=== PATIENT | female | born 1970 | race Caucasian/White ===

== ENCOUNTER 2018-06-21 10:30 | Outpatient (CLI) | payer OTHER ==
--- NOTE | 2018-06-21 11:27 | RAD ---
ABDOMEN ONE VIEW: HISTORY: Kidney stones. Urinary frequency. COMPARISON: 10/24/2016 FINDINGS: Extensive postop changes noted involving the mid and lower abdomen. There is some motion artifact, w hich somewhat obscures the underlying renal stones. There are bilateral nonobstructing renal calculi . No overt ureteral calculus. IMPRESSION: 1. Bilateral renal calculi. 2. Postoperative changes. POS: [facility]
--- NOTE | 2018-06-21 11:41 | ULT ---
BILATERAL RENAL ULTRASOUND COMPLETE: Date: 06/21/18 HISTORY: Kidney stones. COMPARISON: 10/24/16. FINDINGS: The right kidney measures 11.6 x 5.9 x 5.7 cm. The left kidney measures 12.1 x 5.8 x 5.7 cm. No renal hydronephrosis. No perinephric process. Urinary bladder is unremarkable. There are some bila teral renal focal hyperdensities, evidence for nonobstructing renal calculi. IMPRESSION: Evidence for nonobstructing bilateral renal calculi. No renal hydronephrosis. POS: [facility]
== END 2018-06-21 10:31 | disposition home or self-care (01) ==
LOC: BICULT 10:30
PROVIDERS: ATTEND Urology
DX: N20.0 Calculus of kidney (principal); R35.0 Frequency of micturition; Z98.890 Other specified postprocedural states
CPT/HCPCS: 74018; 76770

== ENCOUNTER 2019-07-31 08:08 | Outpatient (CLI) | payer OTHER ==
--- NOTE | 2019-07-31 08:22 | RAD ---
Radiograph abdomen one view: DATE: 07/31/2019 HISTORY: 49-year-old female with calculus of kidney. Follow-up. COMPARISON: 06/21/2018 FINDINGS: Cholecystectomy clips in right upper quadrant. Numerous titanium tacks throughout the mid and lower a bdomen. Renal calculi are again visualized bilaterally, left more numerous than right. The largest on the left overlies the mid pole, up to 10 mm. No calculus identified in the bladder. Normal bowel g as pattern. No interval change. IMPRESSION: 1.) Bilateral nephrolithiasis (calculus of kidney) 2) no interval change
== END 2019-07-31 08:09 | disposition home or self-care (01) ==
LOC: BICRAD 08:08
PROVIDERS: ATTEND Urology
DX: N20.0 Calculus of kidney (principal); R35.0 Frequency of micturition
CPT/HCPCS: 36415; 74018; 80048; 81001; 84550

== ENCOUNTER 2019-08-25 11:04 | Outpatient (CLI) | payer OTHER ==
--- NOTE | 2019-08-25 12:48 | CT ---
CT ABDOMEN AND PELVIS WITHOUT CONTRAST: Date: 08/25/2019 HISTORY: Calculus of kidney. COMPARISON: 03/10/2016. FINDINGS: Absence of oral and IV contrast reduces the sensitivity of exam, particularly for evaluation of solid organs and bowel. The lung bases are clear. Right adrenal adenoma is again seen. The patient is post cholecystectomy. No free air or free fluid s een in the abdomen or pelvis. Postop changes of anterior abdominal wall repair are again noted. The f luid collection in the lower anterior abdominal wall noted on the previous exam has resolved in the i nterim. Bilateral renal calculi are present, measuring up to 4.0 mm on the right and 5.0 mm on the left. No c alculi seen in the ureters or the urinary bladder. No hydroureteronephrosis is seen on either side. The patient is post hysterectomy. There are degenerative changes in the spine. IMPRESSION: 1. Nonobstructing bilateral renal calculi. 2. Right adrenal adenoma. POS: [facility]
== END 2019-08-25 11:05 | disposition home or self-care (01) ==
LOC: BICCT 11:04
PROVIDERS: ATTEND Urology
DX: N20.0 Calculus of kidney (principal); D35.01 Benign neoplasm of right adrenal gland
CPT/HCPCS: 36415; 74176; 81001; 84550

== ENCOUNTER 2021-01-21 16:11 | Outpatient (CLI) | payer OTHER ==
[2021-01-21 18:14] LABS: Hemoglobin 12.8 g/dL (12.0-15.5); Mean Corpuscular HGB CONC 31.9 g/dL (32.0-36.0); Mean Corpuscular Hemoglobin 30.8 pg (27.0-33.0); Mean Corpuscular Volume 96.6 fl (81.6-98.3); Mean Platelet Volume 10.4 fl (7.4-10.4); Platelet Count 384 10x3/uL (150-450); RBC Distribution Width 14.3 % (11.5-14.5); Red Blood Cell (RBC) Count 4.15 10x6/uL (3.90-5.03); White Blood Cell (WBC) Count 9.6 10x3/uL (3.5-10.5)
[2021-01-21 18:27] LABS: Anion Gap 12 mmol/L (10-20); BUN (Urea Nitrogen) 13 mg/dL (7.0-18.7); Calc. Creatinine Clearance 0 mL/min (70-130); Calcium 9.3 mg/dL (7.8-10.44); Carbon Dioxide 24 mmol/L (22-29); Chloride 109 mmol/L (98-107); Glucose 125 mg/dL (70-105); INR-International Normal Ratio 0.9; PTT 29.8 sec (22.0-33.0); Potassium 4.1 mmol/L (3.5-5.1); Prothrombin Time 10.3 sec (9.5-12.1); Sodium 141 mmol/L (136-145)
[2021-01-22 18:14] LABS: SARS-CoV-2 PCR by NAA Not Detected (NotDetected)
== END 2021-01-21 16:12 | disposition home or self-care (01) ==
LOC: LABBT 16:11
PROVIDERS: ATTEND Urology
DX: Z01.818 Encounter for other preprocedural examination (principal); Z20.822 Contact with and (suspected) exposure to COVID-19
CPT/HCPCS: 80048; 85027; 85610; 85730; 93005; 93010; U0003; U0005

== ENCOUNTER 2021-01-26 05:36 | Day surgery (SDC) | payer OTHER ==
[2021-01-25 11:08] VITALS: BMI 49.1
[2021-01-26] MEDS ORDERED: Levofloxacin 500 mg/D5W 100 ml Premix Bag ONE (06:42)
[2021-01-26] MEDS ORDERED: Fentanyl 100 MCG/2 ML VIAL ONE ×3 (07:26→10:05)
[2021-01-26] MEDS ORDERED: SUGAMMADEX SODIUM 200 MG/2 ML VIAL ONE (07:26)
[2021-01-26] MEDS ORDERED: Iothalamate Meglumine 60% 50 ML VIAL FS ONE (07:54)
[2021-01-26] MEDS ORDERED: PROPOFOL 200 MG/20 ML VIAL ONE (08:08)
[2021-01-26] MEDS ORDERED: Glycopyrrolate 0.2 MG/ML 5 ML SYRINGE ONE (08:08)
[2021-01-26] MEDS ORDERED: Lidocaine 1% PF 5 ML VIAL ONE (08:08)
[2021-01-26] MEDS ORDERED: Ondansetron PF 4 MG/2 ML Vial ONE (08:08)
[2021-01-26] MEDS ORDERED: Dexamethasone 20 MG/5 ML VIAL ONE (08:08)
[2021-01-26] MEDS ORDERED: Rocuronium Bromide 10 MG/ML (10ML VIAL) ONE (08:08)
[2021-01-26] MEDS ORDERED: Albuterol Sulfate 1.25 MG/3 ML NEB ONE (09:42)
[2021-01-26] MEDS ORDERED: Oxybutynin 5 MG TAB ONE (09:59)
[2021-01-26] MEDS ORDERED: Phenazopyridine HCl 100 MG TAB ONE (09:59)
[2021-01-26] MEDS ORDERED: Promethazine HCl 25 MG/ML VIAL ONE (10:05)
== END 2021-01-26 12:10 | disposition home or self-care (01) ==
LOC: SDC 05:36
PROVIDERS: ATTEND Urology
PROC: 0TC78ZZ Extirpation of Matter from Left Ureter, Via Natural or Artificial Opening Endoscopic (ICD-10-PCS; principal; 2021-01-26)
PROC: 0TC48ZZ Extirpation of Matter from Left Kidney Pelvis, Via Natural or Artificial Opening Endoscopic (ICD-10-PCS; principal; 2021-01-26)
PROC: 0T778DZ Dilation of Left Ureter with Intraluminal Device, Via Natural or Artificial Opening Endoscopic (ICD-10-PCS; principal; 2021-01-26)
DX: N13.2 Hydronephrosis with renal and ureteral calculous obstruction (principal); J45.909 Unspecified asthma, uncomplicated; E03.9 Hypothyroidism, unspecified; G43.909 Migraine, unspecified, not intractable, without status migrainosus; E21.3 Hyperparathyroidism, unspecified; E79.0 Hyperuricemia without signs of inflammatory arthritis and tophaceous disease; E66.01 Morbid (severe) obesity due to excess calories; Z68.42 Body mass index [BMI] 45.0-49.9, adult; Z79.2 Long term (current) use of antibiotics; Z79.84 Long term (current) use of oral hypoglycemic drugs; Z79.899 Other long term (current) drug therapy; Z88.1 Allergy status to other antibiotic agents; Z88.5 Allergy status to narcotic agent; Z88.8 Allergy status to other drugs, medicaments and biological substances
CPT/HCPCS: 74018; 74420; 82365; 88300; C2617; J1100; J1956; J2405; J2550; J2704; J3010; Q9961-U8

== ENCOUNTER 2021-05-25 09:32 | Outpatient (CLI) | payer OTHER | END 2021-05-25 09:33 | disposition home or self-care (01) | LOC: BICRAD 09:32 | PROVIDERS: ATTEND Urology | DX: N20.0 Calculus of kidney (principal) | CPT/HCPCS: 74018 ==

== ENCOUNTER 2021-09-28 16:58 | Emergency (ER) | payer OTHER ==
[2021-09-28] MEDS ORDERED: Ketorolac Tromethamine 30 MG/ML VIAL ONE (17:54)
[2021-09-28 18:41] LABS: #Eosinphils 0.3 thou/uL (0.0-0.7); #Lymphocytes 1.7 thou/uL (1.20-3.40); #Monocytes 0.5 thou/uL (0.11-0.59); %Basophils 0.3 % (0.0-1.0); %Eosinophils 4.1 % (0.0-10.0); %Lymphocytes 22.4 % (21.0-51.0); %Monocytes 6.3 % (0.0-10.0); %Neutrophils 66.9 % (42.0-75.0); Hemoglobin 13.1 g/dL (12.0-16.0); Mean Corpuscular HGB CONC 32.5 g/dL (32.0-36.0); Mean Corpuscular Hemoglobin 31.2 pg (27.0-31.0); Mean Corpuscular Volume 96.2 fL (78.0-98.0); Mean Platelet Volume 7.9 fL (7.4-10.4); Platelet Count 314 thou/uL (130-400); RBC Distribution Width 12.9 % (11.5-14.5); White Blood Cell (WBC) Count 7.5 thou/uL (4.8-10.8)
[2021-09-28] MEDS ORDERED: Fentanyl 100 MCG/2 ML VIAL ONE (19:04)
[2021-09-28 19:13] LABS: ALT (SGPT) 22 U/L (8-55); AST (SGOT) 17 U/L (5-34); Albumin 3.8 g/dL (3.5-5.0); Alkaline Phosphatase 57 U/L (40-110); Anion Gap 14 mmol/L (10-20); BUN (Urea Nitrogen) 12 mg/dL (9.8-20.1); Bilirubin, Total 0.8 mg/dL (0.2-1.2); Calc. Creatinine Clearance 0 mL/min (70-130); Calcium 9.5 mg/dL (7.8-10.44); Carbon Dioxide 22 mmol/L (22-29); Chloride 108 mmol/L (98-107); Estimated GFR 82; Globulin 3.2 g/dL (2.4-3.5); Glucose 102 mg/dL (70-105); Sodium 140 mmol/L (136-145)
[2021-09-28 19:38] LABS: Bilirubin Negative (Negative); Blood, Urine Negative (Negative); Clarity Clear (Clear); Glucose, Urine (Dipstick) Normal (Negative); Ketone, Urine 10 mg/dL (Negative); Leukocyte 25 Leu/uL (Negative); Nitrite Negative (Negative); Protein, Urine (Dipstick) Negative (Neg-Trace); RBC/HPF 0-3 HPF (0-3); Specific Gravity, Urine 1.024 (1.002-1.036); pH, Urine 5.5 (5.0-9.0)
[2021-09-28 19:41] LABS: Bacteria/HPF Rare-Few HPF (None Seen)
== END 2021-09-28 20:41 | disposition home or self-care (01) ==
LOC: ERS 16:58
DX: N39.0 Urinary tract infection, site not specified (principal); Z87.442 Personal history of urinary calculi
CPT/HCPCS: 74176; 80053; 81003; 81015; 85025; 96374; 96375; J1885; J3010

== ENCOUNTER 2021-12-27 09:08 | Outpatient (CLI) | payer OTHER ==
[2021-12-27 10:01] LABS: Mean Corpuscular HGB CONC 32.7 g/dL (32.0-36.0); Mean Corpuscular Volume 94.5 fl (81.6-98.3); Platelet Count 375 10x3/uL (150-450); RBC Distribution Width 13.6 % (11.5-14.5); White Blood Cell (WBC) Count 8.5 10x3/uL (3.5-10.5)
[2021-12-27 10:14] LABS: INR-International Normal Ratio 0.9; PTT 27.3 sec (22.0-33.0); Prothrombin Time 9.9 sec (9.5-12.1)
[2021-12-27 10:25] LABS: Anion Gap 12 mmol/L (10-20); BUN (Urea Nitrogen) 17 mg/dL (9.8-20.1); Calc. Creatinine Clearance 0 mL/min (70-130); Calcium 9.5 mg/dL (7.8-10.44); Carbon Dioxide 25 mmol/L (22-29); Chloride 106 mmol/L (98-107); Estimated GFR 84; Glucose 110 mg/dL (70-105); Potassium 4.9 mmol/L (3.5-5.1); Sodium 138 mmol/L (136-145)
== END 2021-12-27 09:09 | disposition home or self-care (01) ==
LOC: LABBT 09:08
PROVIDERS: ATTEND Urology
DX: Z01.818 Encounter for other preprocedural examination (principal); E21.3 Hyperparathyroidism, unspecified; N20.0 Calculus of kidney; E66.9 Obesity, unspecified; R35.0 Frequency of micturition
CPT/HCPCS: 80048; 85027; 85610; 85730; 93005; 93010

== ENCOUNTER 2022-01-02 05:55 | Day surgery (SDC) | payer OTHER ==
[2021-12-30 11:53] VITALS: BMI 48.4
[2022-01-02] MEDS ORDERED: Iopamidol 30 ML ONE (07:03)
[2022-01-02] MEDS ORDERED: Levofloxacin 500 mg/D5W 100 ml Premix Bag ONE (07:10)
[2022-01-02] MEDS ORDERED: Famotidine/PF 20 mg/2ml Vial ONE (07:16)
[2022-01-02] MEDS ORDERED: PHENYLEPHRINE-NS 100 MCG/ML 10 ML SYRINGE ONE (07:16)
[2022-01-02] MEDS ORDERED: FENTANYL 50 MCG/ML 1 ML VIAL ONE ×2 (07:22→09:45)
[2022-01-02] MEDS ORDERED: fentaNYL PF 100 MCG/2 ML SYRINGE ONE (07:22)
[2022-01-02] MEDS ORDERED: PROPOFOL 200 MG/20 ML VIAL ONE (07:36)
[2022-01-02] MEDS ORDERED: Phenylephrine 10 MG/ML VIAL ONE (07:36)
[2022-01-02] MEDS ORDERED: Rocuronium Bromide 10 MG/ML (10ML VIAL) ONE (07:36)
[2022-01-02] MEDS ORDERED: Ondansetron PF 4 MG/2 ML Vial ONE (07:36)
[2022-01-02] MEDS ORDERED: NEOSTIGMINE 3 MG/3 ML SYR 3 MG/3 ML SYRINGE ONE (07:36)
[2022-01-02] MEDS ORDERED: Ketorolac Tromethamine 30 MG/ML VIAL ONE (07:36)
[2022-01-02] MEDS ORDERED: Glycopyrrolate 0.2 MG/ML 5 ML SYRINGE ONE (07:36)
[2022-01-02] MEDS ORDERED: Oxybutynin 5 MG TAB ONE (08:43)
[2022-01-02] MEDS ORDERED: Phenazopyridine HCl 100 MG TAB ONE (08:43)
[2022-01-02] MEDS ORDERED: traMADol HCl 50 MG TAB ONE (10:15)
== END 2022-01-02 11:10 | disposition home or self-care (01) ==
LOC: SDC 05:55
PROVIDERS: ATTEND Urology
PROC: 0T768DZ Dilation of Right Ureter with Intraluminal Device, Via Natural or Artificial Opening Endoscopic (ICD-10-PCS; principal; 2022-01-02)
PROC: 0TC38ZZ Extirpation of Matter from Right Kidney Pelvis, Via Natural or Artificial Opening Endoscopic (ICD-10-PCS; principal; 2022-01-02)
DX: N20.0 Calculus of kidney (principal); E21.3 Hyperparathyroidism, unspecified; R35.0 Frequency of micturition; E03.9 Hypothyroidism, unspecified; J45.909 Unspecified asthma, uncomplicated; E66.01 Morbid (severe) obesity due to excess calories; Z68.42 Body mass index [BMI] 45.0-49.9, adult; Z79.85 Long-term (current) use of injectable non-insulin antidiabetic drugs; Z79.899 Other long term (current) drug therapy; Z88.1 Allergy status to other antibiotic agents; Z88.5 Allergy status to narcotic agent; Z88.2 Allergy status to sulfonamides; Z91.048 Other nonmedicinal substance allergy status
CPT/HCPCS: 74018; 74420; C1769; C2617; J1956; J3010; Q9967; S0028

== ENCOUNTER 2023-11-07 06:55 | Outpatient (CLI) | payer BC | END 2023-11-07 06:56 | disposition home or self-care (01) | LOC: BICULT 06:55 | PROVIDERS: ATTEND Urology | DX: N20.0 Calculus of kidney (principal) | CPT/HCPCS: 74018; 76770 ==

== ENCOUNTER 2023-11-09 09:23 | Outpatient (CLI) | payer BC | END 2023-11-09 09:24 | disposition home or self-care (01) | LOC: BICCT 09:23 | PROVIDERS: ATTEND Urology | DX: N20.0 Calculus of kidney (principal); K57.30 Diverticulosis of large intestine without perforation or abscess without bleeding; K43.9 Ventral hernia without obstruction or gangrene | CPT/HCPCS: 74176 ==